=== PATIENT | male | born 1965 | race Caucasian/White ===

== ENCOUNTER 2024-02-24 07:08 | Emergency (ER) | payer MEDICARE, OTHER ==
[~2024-02-24] VITALS: Ht 182.9 cm; Wt 74.8 kg
[2024-02-24 07:24] VITALS: BP 122/77; TEMP 98
[2024-02-24] MEDS ORDERED: CEPH500C2 PO (07:43)
[2024-02-24] MEDS ORDERED: CEPHALEXIN MONOHYDRATE 500 MG CAPSULE PO ONE (07:56)
[2024-02-24] MEDS: CEPHALEXIN MONOHYDRATE 500 MG CAPSULE PO ONE (08:00)
[2024-02-24 08:58] VITALS: O2SAT 98
== END 2024-02-24 08:59 | disposition home or self-care (01) ==
LOC: ER 07:12
DX: L03.116 Cellulitis of left lower limb (principal); Z88.2 Allergy status to sulfonamides